=== PATIENT | female | born 1970 | race Caucasian/White ===

== ENCOUNTER 2021-07-15 06:00 | Day surgery (SDC) | payer MEDICAID ==
[~2021-07-15] VITALS: Ht 165.1 cm; Wt 78.9 kg
[2021-07-15] MEDS ORDERED: MEPERIDINE 100 MG INJ. 100 MG/ML VIAL ONE (08:58)
[2021-07-15] MEDS ORDERED: MIDAZOLAM HCL 5 MG/5 ML VIAL ONE (08:58)
[2021-07-15 11:12] VITALS: BP_SYST 112
== END 2021-07-15 10:20 | disposition home or self-care (01) ==
LOC: SDS 06:00
PROVIDERS: ATTEND Internal Medicine Gastroenterology
DX: Z12.11 Encounter for screening for malignant neoplasm of colon (principal); D12.0 Benign neoplasm of cecum; K64.9 Unspecified hemorrhoids; Z79.899 Other long term (current) drug therapy; Z20.822 Contact with and (suspected) exposure to COVID-19
CPT/HCPCS: 36415; 45385; 87426; 88305; 99152; 99153; G0378; J2175; J2250